=== PATIENT | male | born 1930 | race Caucasian/White ===

== ENCOUNTER 2018-01-06 00:27 | Observation (INO) | payer MEDICARE, BC ==
[2018-01-06] VITALS (7 sets, daily range): BP systolic 143–206; BP diastolic 65–102; PULSE 64–79; RESP 16–18; TEMP 97.6–98.3; O2SAT 93–100
[~2018-01-06 00:27] MED LIST: ASPI81TA82 PO; CALCTAB98 PO; TAB-TAB PO
[2018-01-06] MEDS ORDERED: ASPI1TAB57 PO (00:46)
[2018-01-06] MEDS ORDERED: MECL12.574 PO (00:46)
[2018-01-06] MEDS ORDERED: LUTE6CAP2 PO (00:46)
[2018-01-06] MEDS ORDERED: LOSA25TA PO (00:46)
[2018-01-06] MEDS ORDERED: ARIC5TAB6 PO (00:46)
--- NOTE | 2018-01-06 01:15 | PD ---
HPI Chief Complaint: Altered Mental Status Time Seen by Provider: 00:39 Travel History International Travel<30 days: No Contact w/Intl Traveler<30days: No Traveled to known affect area: No History of Present Illness HPI Patient is an 87-year-old male who lives alone in [place] he went out driving he says today at 10 AM. He then somehow could not find his way back home. He says he drives every day he goes to [facility] he goes to the post office he never had a problem. He then apparently was driving around and around around and could not find his way back to his house and sounds like also to make. After many hours of trying to find his way home he ended up at a gas station he reports the only reason he was brought in because there were 4 police standing around doing absolutely nothing at the gas station that he ended up driving into. Apparently he tripped over the curb at that place and was brought into the ER for evaluation of his confusion patient is a good historian however he does seem to drift often not remember exactly why he said out today or what he was doing driving he insists he drives every day. PFSH Past Medical History Cancer: Yes (SKIN) Cardiovascular Problems: Yes (CABGX3) Dementia: Yes Diabetes: No Diminished Hearing: Yes Endocrine: No Genitourinary: No Hepatitis: No Hiatal Hernia: No Hypertension: Yes (PT DOES NOT TAKE HIS MEDICATION) Immune Disorder: No Musculoskeletal: No Neurologic: Yes (VERTIGO) Respiratory: No Thyroid Disease: No Tetanus Vaccination: Unknown Influenza Vaccination: No (UNKNOWN) Past Surgical History Abdominal Surgery: No AICD: No Body Medical Devices: BILAT HIPS Cardiac Surgery: Yes (CABG X3) Ear Surgery: No Eye Surgery: No Genitourinary Surgery: No Gynecologic Surgery: No Joint Replacement: Yes (BILAT HIPS) Oral Surgery: No Pacemaker: No Thoracic Surgery: No Other Surgery: Yes Social History Alcohol Use: Yes (3 BEERS DAILY) Tobacco Use: No Substance Use: No (DRINKS 6 PACK BEER DAILY) Allergies-Medications (Allergen,Severity, Reaction): Coded Allergies: No Known Allergies (Unverified Allergy, Unknown, 01/06/18) Reported Meds & Prescriptions Reported Meds & Active Scripts Active Reported Aspirin 81 (Aspirin) 81 Mg Tabdr 81 Mg PO DAILY Lutein 6 Mg Cap 6 Mg PO DAILY Meclizine (Meclizine HCl) 12.5 Mg Tab 12.5 Mg PO DIRECTED PRN Aricept (Donepezil HCl) 5 Mg Tablet 5 Mg PO DAILY Review of Systems ROS Limitations: Altered Mental Status, Other: Except as stated in HPI: all other systems reviewed are Neg Physical Exam Narrative GENERAL: pt is awake alert and then he drifts off and unable to remember his thought , SKIN: Warm and dry. HEAD: Atraumatic. Normocephalic. EYES: Pupils equal and round. No scleral icterus. No injection or drainage. ENT: No nasal bleeding or discharge. Mucous membranes pink and moist. NECK: Trachea midline. No JVD. CARDIOVASCULAR: Regular rate and rhythm. RESPIRATORY: No accessory muscle use. Clear to auscultation. Breath sounds equal bilaterally. GASTROINTESTINAL: Abdomen soft, non-tender, nondistended. Hepatic and splenic margins not palpable. MUSCULOSKELETAL: Extremities without clubbing, cyanosis, or edema. No obvious deformities. NEUROLOGICAL: Awake and alert. No obvious cranial nerve deficits. Motor grossly within normal limits. Five out of 5 muscle strength in the arms and legs. Normal speech. He is giving details of day and then he can't remember what he was saying PSYCHIATRIC: Appropriate mood and affect; slight signs of dementia . Data Data Last Documented VS Vital Signs Date Time Temp Pulse Resp B/P (MAP) Pulse Ox O2 Delivery O2 Flow Rate FiO2 01/06/18 12:01 98.3 68 17 150/72 (98) 97 Room Air Orders Orders Electrocardiogram (01/06/18 01:06) Complete Blood Count With Diff (01/06/18 01:06) Comprehensive Metabolic Panel (01/06/18 01:06) Ckmb (Isoenzyme) Profile (01/06/18 01:06) Troponin I (01/06/18 01:06) Lipase (01/06/18 01:06) Magnesium (Mg) (01/06/18 01:06) Chest, Pa & Lat (01/06/18 01:06) Ct Brain W/O Iv Contrast(Rout) (01/06/18 01:06) Sodium Chlorid 0.9% 500 Ml Inj (Ns 500 M (01/06/18 01:45) CKMB (01/06/18 01:00) CKMB% (01/06/18 01:00) Psych Screen (01/06/18 03:36) Urinalysis - C+S If Indicated (01/06/18 03:36) Diet Regular Basic (01/06/18 Breakfast) Vital Signs (Adult) RIVERA.Q4H (01/06/18 15:36) Case Management Consult (01/06/18 ) Consult Pt Eval & Treat (01/06/18 15:36) Enalaprilat Inj (Vasotec Inj) (01/06/18 15:45) Admit Order (Ed Use Only) (01/06/18 17:34) Labs Laboratory Tests Test 01/06/18 01:00 01/06/18 06:00 White Blood Count 6.5 TH/MM3 Red Blood Count 4.10 MIL/MM3 Hemoglobin 13.6 GM/DL Hematocrit 39.8 % Mean Corpuscular Volume 96.9 FL Mean Corpuscular Hemoglobin 33.1 PG Mean Corpuscular Hemoglobin Concent 34.1 % Red Cell Distribution Width 13.8 % Platelet Count 240 TH/MM3 Mean Platelet Volume 8.1 FL Neutrophils (%) (Auto) 67.2 % Lymphocytes (%) (Auto) 19.1 % Monocytes (%) (Auto) 8.7 % Eosinophils (%) (Auto) 3.8 % Basophils (%) (Auto) 1.2 % Neutrophils # (Auto) 4.3 TH/MM3 Lymphocytes # (Auto) 1.2 TH/MM3 Monocytes # (Auto) 0.6 TH/MM3 Eosinophils # (Auto) 0.2 TH/MM3 Basophils # (Auto) 0.1 TH/MM3 CBC Comment DIFF FINAL Differential Comment Blood Urea Nitrogen 29 MG/DL Creatinine 1.84 MG/DL Random Glucose 120 MG/DL Total Protein 7.4 GM/DL Albumin 3.7 GM/DL Calcium Level 8.7 MG/DL Magnesium Level 1.8 MG/DL Alkaline Phosphatase 77 U/L Aspartate Amino Transf (AST/SGOT) 28 U/L Alanine Aminotransferase (ALT/SGPT) 26 U/L Total Bilirubin 0.4 MG/DL Sodium Level 141 MEQ/L Potassium Level 4.3 MEQ/L Chloride Level 108 MEQ/L Carbon Dioxide Level 22.6 MEQ/L Anion Gap 10 MEQ/L Estimat Glomerular Filtration Rate 35 ML/MIN Total Creatine Kinase 196 U/L Creatine Kinase MB 5.6 NG/ML Troponin I LESS THAN 0.02 NG/ML Lipase 231 U/L Urine Color YELLOW Urine Turbidity CLEAR Urine pH 5.0 Urine Specific [place] 1.013 Urine Protein NEG mg/dL Urine Glucose (UA) NEG mg/dL Urine Ketones NEG mg/dL Urine Occult Blood NEG Urine Nitrite NEG Urine Bilirubin NEG Urine Urobilinogen LESS THAN 2.0 MG/DL Urine Leukocyte Esterase NEG Urine RBC 1 /hpf Urine WBC 1 /hpf Urine Squamous Epithelial Cells <1 /hpf Urine Hyaline Casts 30 /lpf Urine Mucus FEW /lpf Microscopic Urinalysis Comment CULT NOT INDICATED MDM Medical Decision Making Medical Screen Exam Complete: Yes Emergency Medical Condition: Yes Differential Diagnosis UTI or PNA infection causing confusion and mild dilirium , vs new onset of dementia vs etoh intox or medication interactions Narrative Course Pt is medically worked up and cleared with CT and CXR amd labs all without findings that indicate his AMS is due to acute delirium . pt is not in need of hospitalization but needs case management for possible assisted liveing or VNA services . signed out to next attending for CAse management eval and plan Diagnosis Primary Impression: Confusion Scripts Memantine (Namenda) 5 Mg Tab 5 MG PO BID for Alzheimer Disease for 30 Days, #60 TAB 0 Refills Prov: Jenna Szymanski 01/07/18 Amlodipine (Norvasc) 10 Mg Tab 10 MG PO DAILY for Blood Pressure Management for 30 Days, #30 TAB 0 Refills Prov: Jenna Szymanski 01/07/18 Benigno Payne MD Jan 06, 2018 01:15
[2018-01-06 01:29] LABS: AUTOMATED NEUTROPHIL # 4.3 TH/MM3 (1.8-7.7); BASOPHIL # 0.1 TH/MM3 (0-0.2); BASOPHIL % 1.2 % (0.0-2.0); EOSINOPHIL # 0.2 TH/MM3 (0-0.4); EOSINOPHIL % 3.8 % (0.0-4.0); HEMATOCRIT 39.8 % (39.0-51.0); HEMOGLOBIN 13.6 GM/DL (13.0-17.0); LYMPH % 19.1 % (9.0-44.0); LYMPHOCYTE # 1.2 TH/MM3 (1.0-4.8); MEAN CELL VOLUME 96.9 FL (80.0-100.0); MEAN CORPUSCULAR HEMOGLOBIN 33.1 PG (27.0-34.0); MEAN CORPUSCULAR HGB CONC 34.1 % (32.0-36.0); MEAN PLATELET VOLUME 8.1 FL (7.0-11.0); MONO % 8.7 % (0.0-8.0); MONOCYTE # 0.6 TH/MM3 (0-0.9); NEUT % 67.2 % (16.0-70.0); PLATELET COUNT 240 TH/MM3 (150-450); RED CELL DISTRIBUTION WIDTH 13.8 % (11.6-17.2); WHITE BLOOD COUNT 6.5 TH/MM3 (4.0-11.0)
[2018-01-06 01:41] LABS: ALBUMIN 3.7 GM/DL (3.4-5.0); ALT (GPT) 26 U/L (12-78); AST (GOT) 28 U/L (15-37); BICARBONATE 22.6 MEQ/L (21.0-32.0); BLOOD UREA NITROGEN 29 MG/DL (7-18); CALCIUM 8.7 MG/DL (8.5-10.1); CHLORIDE 108 MEQ/L (98-107); CREATININE 1.84 MG/DL (0.60-1.30); GLOMERULAR FILTRATION RATE 35 ML/MIN (>89); GLUCOSE,RANDOM 120 MG/DL (74-106); MAGNESIUM 1.8 MG/DL (1.5-2.5); SODIUM (NA) 141 MEQ/L (136-145)
[2018-01-06] MEDS ORDERED: SODIUM CHLORID 0.9% 500 ML INJ 500 ML IV ONE (01:45)
[2018-01-06 01:46] LABS: ALKALINE PHOSPHATASE 77 U/L (45-117); TOTAL BILIRUBIN ADULT 0.4 MG/DL (0.2-1.0); TOTAL PROTEIN 7.4 GM/DL (6.4-8.2); TROPONIN I LESS THAN 0.02 NG/ML (0.02-0.05)
--- NOTE | 2018-01-06 01:49 | RADRPT ---
EXAM DATE/TIME: 01/06/2018 01:36 [facility] COMPARISON: No previous studies available for comparison. INDICATIONS : Shortness of breath, confusion, and weakness. MEDICAL HISTORY : None. SURGICAL HISTORY : None. ENCOUNTER: Initial ACUITY: 1 day PAIN SCORE: 0/10 LOCATION: chest FINDINGS: PA and lateral views of the chest demonstrate the lungs to be symmetrically aerated without evidence of mass, infiltrate or effusion. The cardiomediastinal contours are unremarkable. Sternotomy wires. CONCLUSION: No acute disease. Adria Enriquez MD on January 06, 2018 at 1:46 Board Certified Radiologist. This report was verified electronically.
--- NOTE | 2018-01-06 01:59 | RADRPT ---
EXAM DATE/TIME: 01/06/2018 01:39 [facility] COMPARISON: No previous studies available for comparison. INDICATIONS : Altered mental status. RADIATION DOSE: 56.35 CTDIvol (mGy) MEDICAL HISTORY : Dementia. SURGICAL HISTORY : None. ENCOUNTER: Initial ACUITY: 1 day PAIN SCALE: Non-responsive LOCATION: cranial TECHNIQUE: Multiple contiguous axial images were obtained of the head. Using automated exposure control and adj ustment of the mA and/or kV according to patient size, radiation dose was kept as low as reasonably a chievable to obtain optimal diagnostic quality images. DICOM format image data is available electro nically for review and comparison. FINDINGS: There is mild central and cortical atrophic change. No evidence of intracranial mass or hemorrhage. T here is nothing to suggest acute infarction. The extracranial structures are benign and intact. CONCLUSION: No acute intracranial findings Adria Enriquez MD on January 06, 2018 at 1:54 Board Certified Radiologist. This report was verified electronically.
[2018-01-06 07:07] LABS: BILIRUBIN, URINE NEG (NEG); BLOOD, URINE NEG (NEG); GLUCOSE,URINE NEG (NEG); HYALINE CAST, URINE 30 /lpf (RARE); KETONE, URINE NEG (NEG); MUCUS URINE FEW /lpf (OCC); NITRITE,URINE NEG (NEG); SQUAMOUS EPITHELIAL CELL URINE <1 /hpf (0-5); URINE COLOR YELLOW (YELLW/STRAW); URINE LEUKOCYTE ESTERASE NEG (NEG)
--- NOTE | 2018-01-06 14:47 | PD.PSY.CON ---
Provisional Diagnosis Admission Date [place] I. Major neurocognitive disorder History of Present Illness Service Psychiatry Consult Requested By ER Reason for Consult Dementia Primary Care Physician Anival Simmons M.D. HPI Patient is an 87-year-old man, domiciled alone in [facility], he denies previous psychiatric history, he denies previous psychiatric hospitalizations, denies suicidal attempts, who went out driving he says today at 10 AM. He then somehow could not find his way back home. He says he drives every day he goes to [facility] he goes to the post office he never had a problem. He then apparently was driving around and around around and could not find his way back to his house and sounds like also to make. The patient was consulted to psychiatry for a potential admission. However, on psychiatric evaluation the patient is calm, superficially cooperative, pleasant, but diffusely confused and demented. The patient says that he does not remember the reason he is here. He says that he is getting ready to go on vacation in this hotel. Patient confused me with 1 of her friends in [facility]. He says that he is in a hotel, he thinks it is 1989, no who is the purchasing officer. He reports good mood, he denies anxiety, denies suicidal and was ideation, he denies visual and auditory hallucinations. The patient says that he lives alone, but he has been driving a [employer] 1989. No agitation, no aggressive behavior, no marked paranoia are present. Past Family Social History Coded Allergies: No Known Allergies (Unverified Adverse Reaction, Unknown, 01/06/18) Reported Medications Aspirin DR (Aspirin 81) 81 Mg Tabdr, 81 MG PO DAILY, TAB 0 Refills 01/06/18 Lutein (Lutein) 6 Mg Cap, 6 MG PO DAILY for Nutritional Supplement, CAP 0 Refills 01/06/18 Meclizine (Meclizine) 12.5 Mg Tab, 12.5 MG PO DIRECTED Y for VERTIGO, TAB 0 Refills 01/06/18 Losartan (Losartan) 25 Mg Tab, PO DAILY for Blood Pressure Management, #15 TAB 0 Refills 01/06/18 Donepezil HCl (Aricept) 5 Mg Tablet, 5 MG PO DAILY 01/06/18 Physical Exam Vital Signs Vital Signs Date Time Temp Pulse Resp B/P (MAP) Pulse Ox O2 Delivery O2 Flow Rate FiO2 01/06/18 12:01 98.3 68 17 150/72 (98) 97 Room Air I/O 01/06/18 01/06/18 01/07/18 08:00 16:00 00:00 Intake Total 500 ml Balance 500 ml Lab Results Test 01/06/18 01:00 01/06/18 06:00 White Blood Count 6.5 TH/MM3 Red Blood Count 4.10 MIL/MM3 Hemoglobin 13.6 GM/DL Hematocrit 39.8 % Mean Corpuscular Volume 96.9 FL Mean Corpuscular Hemoglobin 33.1 PG Mean Corpuscular Hemoglobin Concent 34.1 % Red Cell Distribution Width 13.8 % Platelet Count 240 TH/MM3 Mean Platelet Volume 8.1 FL Neutrophils (%) (Auto) 67.2 % Lymphocytes (%) (Auto) 19.1 % Monocytes (%) (Auto) 8.7 % Eosinophils (%) (Auto) 3.8 % Basophils (%) (Auto) 1.2 % Neutrophils # (Auto) 4.3 TH/MM3 Lymphocytes # (Auto) 1.2 TH/MM3 Monocytes # (Auto) 0.6 TH/MM3 Eosinophils # (Auto) 0.2 TH/MM3 Basophils # (Auto) 0.1 TH/MM3 CBC Comment DIFF FINAL Differential Comment Blood Urea Nitrogen 29 MG/DL Creatinine 1.84 MG/DL Random Glucose 120 MG/DL Total Protein 7.4 GM/DL Albumin 3.7 GM/DL Calcium Level 8.7 MG/DL Magnesium Level 1.8 MG/DL Alkaline Phosphatase 77 U/L Aspartate Amino Transf (AST/SGOT) 28 U/L Alanine Aminotransferase (ALT/SGPT) 26 U/L Total Bilirubin 0.4 MG/DL Sodium Level 141 MEQ/L Potassium Level 4.3 MEQ/L Chloride Level 108 MEQ/L Carbon Dioxide Level 22.6 MEQ/L Anion Gap 10 MEQ/L Estimat Glomerular Filtration Rate 35 ML/MIN Total Creatine Kinase 196 U/L Creatine Kinase MB 5.6 NG/ML Troponin I LESS THAN 0.02 NG/ML Lipase 231 U/L Urine Color YELLOW Urine Turbidity CLEAR Urine pH 5.0 Urine Specific [place] 1.013 Urine Protein NEG mg/dL Urine Glucose (UA) NEG mg/dL Urine Ketones NEG mg/dL Urine Occult Blood NEG Urine Nitrite NEG Urine Bilirubin NEG Urine Urobilinogen LESS THAN 2.0 MG/DL Urine Leukocyte Esterase NEG Urine RBC 1 /hpf Urine WBC 1 /hpf Urine Squamous Epithelial Cells <1 /hpf Urine Hyaline Casts 30 /lpf Urine Mucus FEW /lpf Microscopic Urinalysis Comment CULT NOT INDICATED Mental Status Examination Appearance: Appropriate Consciousness: Alert Orientation: Person Motor Activity: Normal gait Speech: Unremarkable Language: Adequate Fund of Knowledge: Adequate Attention and Concentration: Adequate Mood: Appropriate Affect: Appropriate Thought Process & Associations: Intact Thought Content: Appropriate Hallucination Type: None Delusion Type: None Suicidal Ideation: No Suicidal Plan: No Suicidal Intention: No Homicidal Ideation: No Homicidal Plan: No Homicidal Intention: No Insight: Fair Judgment: Impulsive Assessment & Plan Problem List: (1) Major neurocognitive disorder ICD Codes: F03.90 - Unspecified dementia without behavioral disturbance Assessment & Plan: The patient has a visible severe major neurocognitive disorder. He is completely disoriented in time and place, does not know the reason of his hospitalization, but he denies depressive symptoms, he denies anxiety, he denies suicidal and homicidal ideation. There is no agitation, paranoia or aggressive behavior present. At this moment I do not see a reason for psychiatric admission. [facility] was already involved in this case, apparently his 2 kids are coming from another city to pick him up. There is no psychiatric contraindication to discharge this patient back home with his kids. Assessment & Plan Estimated LOS: Marcelo Rodriguez MD Jan 06, 2018 14:47
[2018-01-06] MEDS ORDERED: ENALAPRILAT 1.25 MG/ML VIAL IV PUSH PRN (15:45)
[2018-01-06] MEDS: SODIUM CHLOR 0.9% 1000 ML INJ 1,000 ML IV SCH (18:54)
--- NOTE | 2018-01-06 18:58 | HHI.HP ---
[facility] Service [facility] Primary Care Physician Anival Simmons M.D. Admission Diagnosis progressive dementia with danger to self, inability to care for self Diagnoses: (1) Rapidly progressive dementia Diagnosis: Principal (2) Renal insufficiency Diagnosis: Principal (3) HTN (hypertension) Diagnosis: [place] Travel History International Travel<30 Days: No Contact w/Intl Traveler <30 Da: No Traveled to Known Affected Are: No History of Present Illness This is an 87-year-old male with a PMH of Dementia, HTN and CAD who was brought to the ER by EMS secondary to apparent confusion. Per report, patient lives alone in [place] and was out driving earlier this morning when he could not find his way back home. Pulled into a gas station and apparently had trip and fall at which time EMS was called. Pt awake and alert, but oriented to person only, w/ episodes of confusion. Case Management involved in attempt to find placement as pt unsafe d/c home. Per report, children are coming into town to pick him up. Psych has evaluated pt, no need for psych admission. On arrival, BP 151/65, HR 70, O2 sat 96% on RA, Afebrile. CBC unremarkable. Creatinine 1.84, no previous labs for comparison. Troponin negative. UA negative. CXR with no acute findings. CT Head negative. Review of Systems Except as stated in HPI: all other systems reviewed are Neg ROS: 14 point review of systems otherwise negative. Past Family Social History Past Medical History PMH: Dementia, HTN and CAD Past Surgical History PAST SURGICAL HISTORY: Bilateral Hip Replacement, CABG Allergies: Coded Allergies: No Known Allergies (Unverified Allergy, Unknown, 01/06/18) Family History PAST FAMILY HISTORY: Reviewed. No h/o DM or CAD Social History PAST SOCIAL HISTORY: Drinks 6 beers daily per report. Negative for tobacco or drugs. Physical Exam Vital Signs Vital Signs Date Time Temp Pulse Resp B/P (MAP) Pulse Ox O2 Delivery O2 Flow Rate FiO2 01/06/18 12:01 98.3 68 17 150/72 (98) 97 Room Air 01/06/18 07:53 64 17 189/77 (114) Room Air 01/06/18 06:00 73 16 160/75 (103) 100 Room Air 01/06/18 04:00 72 16 151/77 (101) 97 Room Air 01/06/18 03:00 69 16 143/67 (92) 99 Room Air 01/06/18 00:42 97.6 70 18 151/65 (93) 96 Room Air Physical Exam PE: GENERAL: Elderly white male in no acute distress, sitting at edge of bed, getting up walking around. HEENT: PERRLA, EOMI. No scleral icterus or conjunctival pallor. No lid lag or facial droop. CARDIOVASCULAR: Regular rate and rhythm. No obvious murmurs to auscultation. No chest tenderness to palpation. RESPIRATORY: No obvious rhonchi or wheezing. Clear to auscultation. Breath sounds equal bilaterally. GASTROINTESTINAL: Abdomen soft, non-tender, nondistended. BS normal. MUSCULOSKELETAL: Extremities without clubbing, cyanosis, or edema. No obvious deformities. NEUROLOGICAL: Awake, alert, oriented to person only. No focal neurologic deficits. Moving both upper and lower extremities spontaneously. Laboratory Laboratory Tests Test 01/06/18 01:00 01/06/18 06:00 White Blood Count 6.5 Red Blood Count 4.10 Hemoglobin 13.6 Hematocrit 39.8 Mean Corpuscular Volume 96.9 Mean Corpuscular Hemoglobin 33.1 Mean Corpuscular Hemoglobin Concent 34.1 Red Cell Distribution Width 13.8 Platelet Count 240 Mean Platelet Volume 8.1 Neutrophils (%) (Auto) 67.2 Lymphocytes (%) (Auto) 19.1 Monocytes (%) (Auto) 8.7 Eosinophils (%) (Auto) 3.8 Basophils (%) (Auto) 1.2 Neutrophils # (Auto) 4.3 Lymphocytes # (Auto) 1.2 Monocytes # (Auto) 0.6 Eosinophils # (Auto) 0.2 Basophils # (Auto) 0.1 CBC Comment DIFF FINAL Differential Comment Blood Urea Nitrogen 29 Creatinine 1.84 Random Glucose 120 Total Protein 7.4 Albumin 3.7 Calcium Level 8.7 Magnesium Level 1.8 Alkaline Phosphatase 77 Aspartate Amino Transf (AST/SGOT) 28 Alanine Aminotransferase (ALT/SGPT) 26 Total Bilirubin 0.4 Sodium Level 141 Potassium Level 4.3 Chloride Level 108 Carbon Dioxide Level 22.6 Anion Gap 10 Estimat Glomerular Filtration Rate 35 Total Creatine Kinase 196 Creatine Kinase MB 5.6 Troponin I LESS THAN 0.02 Lipase 231 Urine Color YELLOW Urine Turbidity CLEAR Urine pH 5.0 Urine Specific [place] 1.013 Urine Protein NEG Urine Glucose (UA) NEG Urine Ketones NEG Urine Occult Blood NEG Urine Nitrite NEG Urine Bilirubin NEG Urine Urobilinogen LESS THAN 2.0 Urine Leukocyte Esterase NEG Urine RBC 1 Urine WBC 1 Urine Squamous Epithelial Cells <1 Urine Hyaline Casts 30 Urine Mucus FEW Microscopic Urinalysis Comment CULT NOT INDICATED Result Diagram: 01/06/189901/06/1899 Caprini VTE Risk Assessment Caprini VTE Risk Assessment: No/Low Risk (score <= 1) Caprini Risk Assessment Model Point Value = 1 Point Value = 2 Point Value = 3 Point Value = 5 Age 41-60 Minor surgery BMI > 25 kg/m2 Swollen legs Varicose veins or History of unexplained or recurrent spontaneous Oral contraceptives or hormone replacement Sepsis (< 1 month) Serious lung disease, including pneumonia (< 1 month) Abnormal pulmonary function Acute myocardial infarction Congestive heart failure (< 1 month) History of inflammatory bowel disease Medical patient at bed rest Age 61-74 Arthroscopic surgery Major open surgery (> 45 min) Laparoscopic surgery (> 45 min) Malignancy Confined to bed (> 72 hours) Immobilizing plaster cast Central venous access Age >= 75 History of VTE Family history of VTE Factor V Leiden Prothrombin [id number] Lupus anticoagulant Anticardiolipin antibodies Elevated serum homocysteine Heparin-induced thrombocytopenia Other congenital or acquired thrombophilia Stroke (< 1 month) Elective arthroplasty Hip, pelvis, or leg fracture Acute spinal cord injury (< 1 month) Prophylaxis Regimen Total Risk Factor Score Risk Level Prophylaxis Regimen 0-1 Low Early ambulation 2 Moderate Order ONE of the following: *Sequential Compression Device (SCD) *Heparin 5000 units SQ BID 3-4 Higher Order ONE of the following medications: *Heparin 5000 units SQ TID *Enoxaparin/Lovenox 40 mg SQ daily (WT < 150 kg, CrCl > 30 mL/min) *Enoxaparin/Lovenox 30 mg SQ daily (WT < 150 kg, CrCl > 10-29 mL/min) *Enoxaparin/Lovenox 30 mg SQ BID (WT < 150 kg, CrCl > 30 mL/min) AND/OR *Sequential Compression Device (SCD) 5 or more Highest Order ONE of the following medications: *Heparin 5000 units SQ TID (Preferred with Epidurals) *Enoxaparin/Lovenox 40 mg SQ daily (WT < 150 kg, CrCl > 30 mL/min) *Enoxaparin/Lovenox 30 mg SQ daily (WT < 150 kg, CrCl > 10-29 mL/min) *Enoxaparin/Lovenox 30 mg SQ BID (WT < 150 kg, CrCl > 30 mL/min) AND *Sequential Compression Device (SCD) Assessment and Plan Problem List: (1) Rapidly progressive dementia ICD Code: F03.90 - Unspecified dementia without behavioral disturbance Status: Acute (2) HTN (hypertension) ICD Code: I10 - Essential (primary) hypertension (3) Renal insufficiency ICD Code: N28.9 - Disorder of kidney and ureter, unspecified Assessment and Plan A/P: 1. Dementia: Rapidly Progressive. Found driving around confused, not knowing where he lived. S/p eval by Psych w/ no indication for Psych admit. Currently placement issue, pt lives alone and is unsafe d/c home. Case Management onboard , family members contacted, children coming in from out of town to pick him up/ arrange placement. Admit to Observation, Case Management consult. Will place Sitter as pt agitated, getting up, trying to leave. Ativan prn. Resume home Aricept. CT Head w/ no acute findings, CXR negative, images reviewed by me. 2. HTN: Uncontrolled. BP 180's. Hold Losartan in light of renal insufficiency. Start Metoprolol. Monitor BP. 3. Renal Insufficiency: Creatinine 1.84, no previous labs for comparison, U/a negative. IVF for hydration, repeat labs in am. 4. DVT Prophylaxis: SCD/Teds. 5. Social work for d/c planning as above 6. Case discussed w/ day physician, labs/records/imaging reviewed by me. Lucia Sanabria MD Jan 06, 2018 18:58
[2018-01-06] MEDS ORDERED: ONDANSETRON HCL 4 MG/2 ML VIAL IVP PRN (19:00)
[2018-01-06] MEDS ORDERED: LORazepam 2 MG/ML VIAL IV PUSH PRN (19:00)
[2018-01-06] MEDS ORDERED: SENNOSIDES 8.6 MG TAB PO PRN (19:00)
[2018-01-06] MEDS ORDERED: MAGNESIUM HYDROXIDE SUSP 30 ML CUP PO PRN (19:00)
[2018-01-06] MEDS ORDERED: SODIUM CHLORIDE 0.9% FLUSH 10 ML FLUSH IV FLUSH PRN (19:00)
[2018-01-06] MEDS ORDERED: LACTULOSE SYRUP 20 GM/30 ML CUP PO PRN (19:00)
[2018-01-06] MEDS ORDERED: ACETAMINOPHEN 325 MG TAB PO PRN (19:00)
[2018-01-06] MEDS ORDERED: ACETAMINOPHEN/HYDROcodone 325 MG/5 MG TAB PO PRN (19:00)
[2018-01-06] MEDS ORDERED: ACETAMINOPHEN/HYDROcodone 325 MG/10 MG TAB PO PRN (19:00)
[2018-01-06] MEDS ORDERED: BISACODYL 10 MG SUPP RECTAL PRN (19:00)
--- NOTE | 2018-01-06 19:06 | PD ---
Physical Exam Date Seen by Provider: Jan 06, 2018 Time Seen by Provider: 16:00 Narrative Patient was seen initially by Dr. Payne. Patient was evaluated for being found driving with confusion. The patient appears to have progressive dementia. The patient was to be seen by case management for possible placement. Data Data Last Documented VS Vital Signs Date Time Temp Pulse Resp B/P (MAP) Pulse Ox O2 Delivery O2 Flow Rate FiO2 01/06/18 12:01 98.3 68 17 150/72 (98) 97 Room Air Orders Orders Electrocardiogram (01/06/18 01:06) Complete Blood Count With Diff (01/06/18 01:06) Comprehensive Metabolic Panel (01/06/18 01:06) Ckmb (Isoenzyme) Profile (01/06/18 01:06) Troponin I (01/06/18 01:06) Lipase (01/06/18 01:06) Magnesium (Mg) (01/06/18 01:06) Chest, Pa & Lat (01/06/18 01:06) Ct Brain W/O Iv Contrast(Rout) (01/06/18 01:06) Sodium Chlorid 0.9% 500 Ml Inj (Ns 500 M (01/06/18 01:45) CKMB (01/06/18 01:00) CKMB% (01/06/18 01:00) Psych Screen (01/06/18 03:36) Urinalysis - C+S If Indicated (01/06/18 03:36) Diet Regular Basic (01/06/18 Breakfast) Vital Signs (Adult) RIVERA.Q4H (01/06/18 15:36) Case Management Consult (01/06/18 ) Consult Pt Eval & Treat (01/06/18 15:36) Enalaprilat Inj (Vasotec Inj) (01/06/18 15:45) Admit Order (Ed Use Only) (01/06/18 17:34) Labs Laboratory Tests Test 01/06/18 01:00 01/06/18 06:00 White Blood Count 6.5 TH/MM3 Red Blood Count 4.10 MIL/MM3 Hemoglobin 13.6 GM/DL Hematocrit 39.8 % Mean Corpuscular Volume 96.9 FL Mean Corpuscular Hemoglobin 33.1 PG Mean Corpuscular Hemoglobin Concent 34.1 % Red Cell Distribution Width 13.8 % Platelet Count 240 TH/MM3 Mean Platelet Volume 8.1 FL Neutrophils (%) (Auto) 67.2 % Lymphocytes (%) (Auto) 19.1 % Monocytes (%) (Auto) 8.7 % Eosinophils (%) (Auto) 3.8 % Basophils (%) (Auto) 1.2 % Neutrophils # (Auto) 4.3 TH/MM3 Lymphocytes # (Auto) 1.2 TH/MM3 Monocytes # (Auto) 0.6 TH/MM3 Eosinophils # (Auto) 0.2 TH/MM3 Basophils # (Auto) 0.1 TH/MM3 CBC Comment DIFF FINAL Differential Comment Blood Urea Nitrogen 29 MG/DL Creatinine 1.84 MG/DL Random Glucose 120 MG/DL Total Protein 7.4 GM/DL Albumin 3.7 GM/DL Calcium Level 8.7 MG/DL Magnesium Level 1.8 MG/DL Alkaline Phosphatase 77 U/L Aspartate Amino Transf (AST/SGOT) 28 U/L Alanine Aminotransferase (ALT/SGPT) 26 U/L Total Bilirubin 0.4 MG/DL Sodium Level 141 MEQ/L Potassium Level 4.3 MEQ/L Chloride Level 108 MEQ/L Carbon Dioxide Level 22.6 MEQ/L Anion Gap 10 MEQ/L Estimat Glomerular Filtration Rate 35 ML/MIN Total Creatine Kinase 196 U/L Creatine Kinase MB 5.6 NG/ML Troponin I LESS THAN 0.02 NG/ML Lipase 231 U/L Urine Color YELLOW Urine Turbidity CLEAR Urine pH 5.0 Urine Specific [place] 1.013 Urine Protein NEG mg/dL Urine Glucose (UA) NEG mg/dL Urine Ketones NEG mg/dL Urine Occult Blood NEG Urine Nitrite NEG Urine Bilirubin NEG Urine Urobilinogen LESS THAN 2.0 MG/DL Urine Leukocyte Esterase NEG Urine RBC 1 /hpf Urine WBC 1 /hpf Urine Squamous Epithelial Cells <1 /hpf Urine Hyaline Casts 30 /lpf Urine Mucus FEW /lpf Microscopic Urinalysis Comment CULT NOT INDICATED MDM Medical Record Reviewed: Yes Supervised Visit with SU: No Narrative Course 87-year-old gentleman who presents after being found driving and confused. Patient has a normal medical workup. After speaking with his primary care doctor Dr. Singh, he does appear to have progressive dementia. Case management did speak with family members who are planning on coming here tomorrow from [facility]. They are looking at placing him at [facility] in the [facility]. Given this, the patient will be admitted for observation until case management can work with family for placement. [facility]. Diagnosis Primary Impression: Rapidly progressive dementia Additional Impressions: Danger to self Inability to care for self Admitting Information Admitting Physician Requests: Observation Azam Viramontes MD Jan 06, 2018 19:06
--- NOTE | 2018-01-06 19:52 | EKG ---
Date Performed: 01/06/2018 Time Performed: 01:57:37 PTAGE: 87 years EKG: Sinus rhythm WITH FIRST DEGREE AV BLOCK MODERATE VOLTAGE CRITERIA FOR LVH, CONSIDER NORMAL VARIANT NONSPECIFIC T- WAVE ABNORMALITY ABNORMAL ECG Since the PREVIOUS TRACING , no significant change noted PREVIOUS TRACIN07/28/2015 11.15 DOCTOR: Shabbir Lynn Interpretating Date/Time 01/06/2018 19:51:41
[2018-01-06] MEDS ORDERED: TEMAZEPAM 7.5 MG CAP PO PRN (20:00)
[2018-01-06] MEDS: METOPROLOL TARTRATE 25 MG TAB PO SCH (21:00)
[2018-01-06] MEDS: SODIUM CHLORIDE 0.9% FLUSH 10 ML FLUSH IV FLUSH SCH (21:23)
[2018-01-06] MEDS: DOCUSATE SODIUM 50 MG/SENNA 8.6 MG TAB PO SCH (21:23)
[2018-01-07 05:19] VITALS: BP 130/66; PULSE 57; RESP 18; TEMP 97.2; O2SAT 97
[2018-01-07 06:18] LABS: ALBUMIN 3.1 GM/DL (3.4-5.0); ALKALINE PHOSPHATASE 69 U/L (45-117); ALT (GPT) 22 U/L (12-78); AST (GOT) 25 U/L (15-37); BICARBONATE 21.9 MEQ/L (21.0-32.0); CALCIUM 8.4 MG/DL (8.5-10.1); CHLORIDE 112 MEQ/L (98-107); CREATININE 1.35 MG/DL (0.60-1.30); GLOMERULAR FILTRATION RATE 50 ML/MIN (>89); GLUCOSE,RANDOM 79 MG/DL (74-106); SODIUM (NA) 144 MEQ/L (136-145); TOTAL BILIRUBIN ADULT 0.5 MG/DL (0.2-1.0); TOTAL PROTEIN 6.5 GM/DL (6.4-8.2)
[2018-01-07 06:22] LABS: BLOOD UREA NITROGEN 26 MG/DL (7-18)
[2018-01-07 07:25] LABS: AUTOMATED NEUTROPHIL # 2.4 TH/MM3 (1.8-7.7); EOSINOPHIL # 0.2 TH/MM3 (0-0.4); EOSINOPHIL % 5.3 % (0.0-4.0); HEMATOCRIT 38.7 % (39.0-51.0); HEMOGLOBIN 12.8 GM/DL (13.0-17.0); LYMPH % 25.2 % (9.0-44.0); LYMPHOCYTE # 1.1 TH/MM3 (1.0-4.8); MEAN CELL VOLUME 97.2 FL (80.0-100.0); MEAN CORPUSCULAR HEMOGLOBIN 32.3 PG (27.0-34.0); MEAN CORPUSCULAR HGB CONC 33.2 % (32.0-36.0); MEAN PLATELET VOLUME 8.1 FL (7.0-11.0); MONO % 11.9 % (0.0-8.0); MONOCYTE # 0.5 TH/MM3 (0-0.9); NEUT % 56.6 % (16.0-70.0); PLATELET COUNT 214 TH/MM3 (150-450); RED BLOOD COUNT 3.98 MIL/MM3 (4.50-5.90); WHITE BLOOD COUNT 4.3 TH/MM3 (4.0-11.0)
[2018-01-07] MEDS ORDERED: DONEPEZIL HCL 5 MG TAB PO SCH (09:00)
[2018-01-07] MEDS ORDERED: ASPIRIN EC 81 MG TABEC PO SCH (09:00)
[2018-01-07] MEDS: SODIUM CHLOR 0.9% 1000 ML INJ 1,000 ML IV SCH (09:09)
[2018-01-07] MEDS: SODIUM CHLORIDE 0.9% FLUSH 10 ML FLUSH IV FLUSH SCH (09:10)
[2018-01-07] MEDS: DOCUSATE SODIUM 50 MG/SENNA 8.6 MG TAB PO SCH (09:11)
[2018-01-07 09:18] VITALS: BP 162/67; PULSE 72; O2SAT 97
[2018-01-07] MEDS: METOPROLOL TARTRATE 25 MG TAB PO SCH (09:18)
[2018-01-07 12:00] VITALS: BP 136/62; PULSE 76; RESP 20; TEMP 95.7; O2SAT 98
--- NOTE | 2018-01-07 12:36 | HHI.PR ---
Subjective Remarks in no acute distress. is comfortable. BP trend noted. Objective Vitals Vital Signs Date Time Temp Pulse Resp B/P (MAP) Pulse Ox O2 Delivery O2 Flow Rate FiO2 01/07/18 09:18 72 162/67 (98) 97 01/07/18 05:19 97.2 57 18 130/66 (87) 97 01/06/18 21:17 98.2 79 18 206/91 (129) 93 170/102 (124) I/O 01/06/18 01/06/18 01/06/18 01/07/18 01/07/18 01/07/18 07:00 15:00 23:00 07:00 15:00 23:00 Intake Total 500 ml Balance 500 ml Intake IV Total 500 ml Result Diagram: 01/07/18 0649 01/07/18 0501 Imaging Last Impressions Head CT 01/06/18105 Signed Impressions: Service Date/Time: Saturday, January 06, 2018 01:39 - CONCLUSION: No acute intracranial findings Adria Enriquez MD Chest X-Ray 01/06/18105 Signed Impressions: Service Date/Time: Saturday, January 06, 2018 01:36 - CONCLUSION: No acute disease. Adria Enriquez MD Objective Remarks GENERAL: This is a well-nourished, well-developed patient, in no apparent distress. CARDIOVASCULAR: Regular rate and regular rhythm without murmurs, gallops, or rubs. RESPIRATORY: Clear to auscultation. Breath sounds equal bilaterally. No wheezes , rales, or rhonchi. GASTROINTESTINAL: Abdomen soft, non-tender, nondistended. Normal, active bowel sounds MUSCULOSKELETAL: Extremities without clubbing, cyanosis, or edema. NEURO: Awake and alert but pleasantly confused. Medications and IVs Inpatient Medications Acetaminophen (Tylenol) 650 mg Q6H PRN PO FEVER/PAIN SCALE 1 TO 2; Start at 19:00 Acetaminophen/ Hydrocodone Bitart ([place] 5-325 Mg) 1 tab Q4H PRN PO PAIN SCALE 3 TO 5; Start 01/06/18 at 19:00 Acetaminophen/ Hydrocodone Bitart ([place] 10-325 Mg) 1 tab Q4H PRN PO PAIN SCALE 6 TO 10; Start 01/06/18 at 19:00 Aspirin (Ecotrin Ec) 81 mg DAILY PO Last administered on 01/07/18at 09:10; Start 01/07/18 at 09:00 Bisacodyl (Dulcolax Supp) 10 mg DAILY PRN RECTAL SEVERE CONSITIPATION; Start at 19:00 Donepezil HCl (Aricept) 5 mg DAILY PO Last administered on 01/07/18at 09:11; Start 01/07/18 at 09:00 Enalaprilat (Vasotec Inj) 1.25 mg Q8H PRN IV PUSH SBP> OR = 180, DBP> OR = 100 ; Start 01/06/18 at 15:45 Lactulose (Lactulose Liq) 30 ml DAILY PRN PO SEVERE CONSITIPATION; Start at 19:00 Lorazepam (Ativan Inj) 1 mg Q2H PRN IV PUSH AGITATION Last administered on 01/06at 21:21; Start 01/06/18 at 19:00 Magnesium Hydroxide (Milk Of Magnesia Liq) 30 ml Q12H PRN PO Mild constipation ; Start 01/06/18 at 19:00 Metoprolol Tartrate (Lopressor) 25 mg Q12HR PO Last administered on 01/07/18at 09:18; Start 01/06/18 at 21:00 Ondansetron HCl (Zofran Inj) 4 mg Q6H PRN IVP NAUSEA OR VOMITING; Start at 19:00 Senna/Docusate Sodium (Gema-Colace) 1 tab BID PO Last administered on at 09:11; Start 01/06/18 at 21:00 Sennosides (Senokot) 17.2 mg Q12H PRN PO Moderate constipation; Start 01/06/18 at 19:00 Sodium Chloride (NS Flush) 2 ml BID IV FLUSH Last administered on 01/07/18at 09: 10; Start 01/06/18 at 21:00 Temazepam (Restoril) 7.5 mg HS PRN PO SLEEP; Start 01/06/18 at 20:00 A/P Problem List: (1) Rapidly progressive dementia ICD Code: F03.90 - Unspecified dementia without behavioral disturbance Status: Acute (2) HTN (hypertension) ICD Code: I10 - Essential (primary) hypertension (3) Renal insufficiency ICD Code: N28.9 - Disorder of kidney and ureter, unspecified Assessment and Plan A/P 1. Dementia: Rapidly Progressive. Found driving around confused, not knowing where he lived. S/p eval by Psych w/ no indication for Psych admit. Currently placement issue, pt lives alone and is unsafe d/c home. Case Management onboard , family members contacted, children coming in from out of town to pick him up/ arrange placement. Case Management consulted. 2. HTN: Uncontrolled. BP 180's. Hold Losartan in light of renal insufficiency. Started Metoprolol. Monitor BP. will consider adding amlodipine if BP still elevated. 3. acute kidney injury; improved-U/a negative. 4. DVT Prophylaxis: SCD/Teds. 5. Social work for d/c planning as above Yolanda Beavers MD Jan 07, 2018 12:36
[2018-01-07] MEDS ORDERED: AMLO10 PO (13:49)
[2018-01-07] MEDS ORDERED: NAME5TAB2 PO (13:50)
--- NOTE | 2018-01-07 13:52 | HHI.DCPOC ---
Discharge Care Plan Diagnosis: (1) HTN (hypertension) (2) Renal insufficiency (3) Rapidly progressive dementia Your Health Problems Are: Difficulty with ADL Goals to Promote Your Health * To prevent worsening of your condition and complications * To maintain your health at the optimal level Directions to Meet Your Goals Take your medications as prescribed Follow your dietary instruction Follow activity as directed Keep your appointments as scheduled Take your immunizations and boosters as scheduled If your symptoms worsen call your PCP, if no PCP go to Urgent Care Center or Emergency Room Smoking is Dangerous to Your Health. Avoid second hand smoke Call the 24-hour hour crisis hotline for domestic abuse at Jenna Szymanski [facility] Jan 07, 2018 13:52
--- NOTE | 2018-01-07 13:53 | HHI.DS ---
Discharge Summary Admission Date Jan 06, 2018 at 17:36 Discharge Date: Jan 07, 2018 Admitting Diagnosis progressive dementia with danger to self, inability to care for self (1) Rapidly progressive dementia ICD Code: F03.90 - Unspecified dementia without behavioral disturbance Status: Acute (2) HTN (hypertension) ICD Code: I10 - Essential (primary) hypertension (3) Renal insufficiency ICD Code: N28.9 - Disorder of kidney and ureter, unspecified Procedures None Brief History - From Admission This is an 87-year-old male with a PMH of Dementia, HTN and CAD who was brought to the ER by EMS secondary to apparent confusion. Per report, patient lives alone in [place] and was out driving earlier this morning when he could not find his way back home. Pulled into a gas station and apparently had trip and fall at which time EMS was called. Pt awake and alert, but oriented to person only, w/ episodes of confusion. Case Management involved in attempt to find placement as pt unsafe d/c home. Per report, children are coming into town to pick him up. Psych has evaluated pt, no need for psych admission. On arrival, BP 151/65, HR 70, O2 sat 96% on RA, Afebrile. CBC unremarkable. Creatinine 1.84, no previous labs for comparison. Troponin negative. UA negative. CXR with no acute findings. CT Head negative. CBC/BMP: 01/07/18 0649 01/07/18 0501 Significant Findings Laboratory Tests Test 01/06/18 01:00 01/06/18 06:00 01/07/18 05:01 01/07/18 06:49 Red Blood Count 4.10 MIL/MM3 (4.50-5.90) 3.98 MIL/MM3 (4.50-5.90) Monocytes (%) (Auto) 8.7 % (0.0-8.0) 11.9 % (0.0-8.0) Blood Urea Nitrogen 29 MG/DL (7-18) 26 MG/DL (7-18) Creatinine 1.84 MG/DL (0.60-1.30) 1.35 MG/DL (0.60-1.30) Random Glucose 120 MG/DL (74-106) Chloride Level 108 MEQ/L (98-107) 112 MEQ/L (98-107) Estimat Glomerular Filtration Rate 35 ML/MIN (>89) 50 ML/MIN (>89) Creatine Kinase MB 5.6 NG/ML (0.5-3.6) Troponin I LESS THAN 0.02 NG/ML Urine Mucus FEW /lpf (OCC) Albumin 3.1 GM/DL (3.4-5.0) Calcium Level 8.4 MG/DL (8.5-10.1) Hemoglobin 12.8 GM/DL (13.0-17.0) Hematocrit 38.7 % (39.0-51.0) Eosinophils (%) (Auto) 5.3 % (0.0-4.0) Imaging Last Impressions Head CT 01/06/18105 Signed Impressions: Service Date/Time: Saturday, January 06, 2018 01:39 - CONCLUSION: No acute intracranial findings Adria Enriquez MD Chest X-Ray 01/06/18105 Signed Impressions: Service Date/Time: Saturday, January 06, 2018 01:36 - CONCLUSION: No acute disease. Adria Enriquez MD PE at Discharge GENERAL: This is a well-nourished, well-developed patient, in no apparent distress. CARDIOVASCULAR: Regular rate and regular rhythm without murmurs, gallops, or rubs. RESPIRATORY: Clear to auscultation. Breath sounds equal bilaterally. No wheezes , rales, or rhonchi. GASTROINTESTINAL: Abdomen soft, non-tender, nondistended. Normal, active bowel sounds MUSCULOSKELETAL: Extremities without clubbing, cyanosis, or edema. NEURO: Awake and alert. Pt update on day of discharge Follow-up visit progressive dementia, HTN, CAD. Patient seen and examined today sitting in bed eating his lunch. Patient states he is doing well. Patient is very thankful and appreciative of being taken care to off. Although he does not know where he is at but states that he has been cared for very well. States that his 2 sons are picking them up there although the live together. Denies pain and discomfort. Denies SOB/ dyspnea. Denies chest pain , palpitations, headaches, dizziness. Denies fevers, chills, n/v/d. Denies dysuria. Hospital Course 87-year-old male with a PMH of Dementia, HTN and CAD who was brought to the ER by EMS secondary to apparent confusion, patient lives alone in [place] and was out driving and he could not find his way back home. Patient found to have dementia, progressive moderate to severe. He was found driving and confused. He lives alone and it is unsafe to discharge home by himself. Case management was consulted to get family members on board and contact them for patient placement. Today family members came in and states that they want to get him. Their plan was to placed [facility] We have already made arrangements to call Tuesday for the plan. As per nursing, family members will get the patient today and will not give him his car keys and will take care of him until he gets to be place at an assisted living facility. Patient is now on Aricept and Namenda. Patient also found to have uncontrolled hypertension with his blood pressures in the 180s. His losartan was held secondary to renal insufficiency. He was started on metoprolol and now switched to Norvasc. 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 IV fluids was provided also p.o. fluid hydration. His creatinine has improved compared to what he meant. Patient has met maximal benefits of hospitalization. Clinically stable for discharge. Pt Condition on Discharge: Stable Discharge Disposition: ACLF/JAIL Discharge Time: > 30 minutes Discharge Instructions DIET: Follow Instructions for: Heart Healthy Diet Activities you can perform: Regular-No Restrictions Follow up Referrals: PCP Follow-up - 2-3 Days New Medications: Amlodipine (Norvasc) 10 Mg Tab 10 MG PO DAILY for Blood Pressure Management for 30 Days, #30 TAB 0 Refills Memantine (Namenda) 5 Mg Tab 5 MG PO BID for Alzheimer Disease for 30 Days, #60 TAB 0 Refills Continued Medications: Aspirin DR (Aspirin 81) 81 Mg Tabdr 81 MG PO DAILY, TAB 0 Refills Donepezil HCl (Aricept) 5 Mg Tablet 5 MG PO DAILY Discontinued Medications: Losartan (Losartan) 25 Mg Tab Unknown Dose PO DAILY for Blood Pressure Management, #15 TAB 0 Refills Jenna Szymanski Jan 07, 2018 13:53
[2018-01-07] MEDS ORDERED: MEMANTINE HCL 5 MG TAB PO SCH (14:00)
[2018-01-07 16:00] VITALS: BP 162/75; PULSE 73; RESP 20; TEMP 97; O2SAT 95
[2018-01-07] MEDS ORDERED: SODIUM CHLOR 0.9% 1000 ML INJ 1,000 ML IV ONE (18:54)
== END 2018-01-07 18:17 | disposition home or self-care (01) ==
LOC: NEPC 00:27 → NEDA 17:36 → NEPHCDU 20:15
PROVIDERS: ADMIT Internal Medicine; ATTEND Internal Medicine
DX: F03.90 Unspecified dementia, unspecified severity, without behavioral disturbance, psychotic disturbance, mood disturbance, and anxiety (principal); I10 Essential (primary) hypertension; N17.9 Acute kidney failure, unspecified; N28.9 Disorder of kidney and ureter, unspecified; I25.10 Atherosclerotic heart disease of native coronary artery without angina pectoris; R94.31 Abnormal electrocardiogram [ECG] [EKG]; H91.90 Unspecified hearing loss, unspecified ear; Z79.899 Other long term (current) drug therapy; Z85.828 Personal history of other malignant neoplasm of skin; Z95.1 Presence of aortocoronary bypass graft; Z96.643 Presence of artificial hip joint, bilateral; W01.0XXA Fall on same level from slipping, tripping and stumbling without subsequent striking against object, initial encounter; Y92.524 Gas station as the place of occurrence of the external cause
CPT/HCPCS: 70450; 71046; 80053; 81001; 82550; 82552; 83690; 83735; 84484; 85025; 93005; 96361; 96374; 97162; 99285; G0378; G8987; G8988; J2060; J7030; J7040